=== PATIENT | female | born 1995 | race Caucasian/White ===

== ENCOUNTER 2016-10-05 20:47 | Emergency (ER) | payer MEDICARE | END 2016-10-06 00:25 | disposition short-term general hospital (02) | LOC: ER 20:47 | DX: K35.80 Unspecified acute appendicitis (principal); E66.9 Obesity, unspecified; F17.210 Nicotine dependence, cigarettes, uncomplicated; Z88.1 Allergy status to other antibiotic agents | CPT/HCPCS: 36415; 96365; 96375; 96376; J1885; Q9967 ==

== ENCOUNTER 2016-10-06 21:49 | Emergency (ER) | payer MEDICARE | END 2016-10-07 00:25 | disposition home or self-care (01) | LOC: ER 21:49 | DX: G89.18 Other acute postprocedural pain (principal); R10.9 Unspecified abdominal pain; R11.2 Nausea with vomiting, unspecified; F17.210 Nicotine dependence, cigarettes, uncomplicated; Z88.1 Allergy status to other antibiotic agents | CPT/HCPCS: 36415; 96361; 96374; 96375 ==